=== PATIENT | male | born 1985 | race Two or more races ===

== ENCOUNTER 2021-09-22 11:10 | Emergency (ER) | payer SELFPAY ==
[~2021-09-22] VITALS: Ht 170.2 cm; Wt 76.7 kg
[2021-09-22 11:20] VITALS: BP 118/69
--- NOTE | 2021-09-22 11:25 | NUR ---
LT HAND SWELLING. - TRAUMA PER PT. AMBULATORY, [id number]
[2021-09-22 12:20] LABS: HEMATOCRIT 44 % (39-51); HEMOGLOBIN 14.6 g/dL (13.5-17.5); MEAN CORPUSCULAR HGB CONC 33 g/dl (31.0-36.0); MEAN CORPUSCULAR VOLUME 85 fL (80-96); NEUTROPHILS % (AUTO) 57.3 % (43.0-81.0); PLATELET COUNT (AUTO) 234 K/uL (150-450); RED BLOOD CELL COUNT(AUTO) 5.18 MIL/uL (4.5-6.0); WHITE BLOOD COUNT (AUTO) 6.7 K/uL (4.3-11.0)
[2021-09-22 12:21] LABS: BASOPHILS % (AUTO) 0.3 % (0.0-2.0); EOSINOPHILS % (AUTO) 3.2 % (0.0-6.0); LYMPHOCYTES # (AUTO) 2.1 K/uL (0.8-4.8); LYMPHOCYTES % (AUTO) 31.6 % (20.0-44.0); MONOCYTES # (AUTO) 0.5 K/uL (0.1-1.30); MONOCYTES % (AUTO) 7.6 % (2.0-12.0); NEUTROPHILS # (AUTO) 3.8 K/uL (1.8-8.9)
[2021-09-22 12:33] LABS: CREATININE 1.2 mg/dL (0.6-1.3); POTASSIUM 4.1 mmol/L (3.5-5.1)
--- NOTE | 2021-09-22 14:42 | NUR ---
Patient discharged to home in stable condition. Written and verbal after care instructions given. Patient verbalizes understanding of instruction.
== END 2021-09-22 14:44 | disposition home or self-care (01) ==
LOC: ER 11:16
DX: M65.242 Calcific tendinitis, left hand (principal); Z60.2 Problems related to living alone
CPT/HCPCS: 36415; 73140-TC; 80048-TC; 85025-TC; 85652-TC; 86140-TC

== ENCOUNTER 2025-02-25 11:56 | Emergency (ER) | payer MEDICAID, OTHER ==
[~2025-02-25] VITALS: Ht 177.8 cm; Wt 74.8 kg
[2025-02-25 12:06] VITALS: BP 165/96; TEMP 97.7
[2025-02-25] MEDS ORDERED: LIDO1ADH82 TP (12:20)
[2025-02-25] MEDS ORDERED: IBUP-1957 PO (12:20)
[2025-02-25] MEDS ORDERED: METH4TAB17 PO (12:20)
[2025-02-25] MEDS ORDERED: CYCL5TAB PO (12:20)
[2025-02-25] MEDS ORDERED: CYCLOBENZAPRINE 10 MG TABLET ONE (12:25)
[2025-02-25] MEDS ORDERED: LIDOCAINE 5% (PATCH) 1 EA PATCH TP ONE (12:25)
[2025-02-25] MEDS ORDERED: KETOROLAC TROMETHAMINE INJ 30 MG/ML VIAL ONE (12:25)
[2025-02-25] MEDS: KETOROLAC TROMETHAMINE INJ 30 MG/ML VIAL IM ONE (12:34)
[2025-02-25] MEDS: LIDOCAINE 5% (PATCH) 1 EA PATCH TP STA (12:35)
[2025-02-25] MEDS: CYCLOBENZAPRINE 10 MG TABLET PO ONE (12:38)
[2025-02-25 12:39] VITALS: O2SAT 98
== END 2025-02-25 12:40 | disposition home or self-care (01) ==
LOC: ER 12:03
DX: M54.31 Sciatica, right side (principal); Z79.1 Long term (current) use of non-steroidal anti-inflammatories (NSAID); W01.0XXA Fall on same level from slipping, tripping and stumbling without subsequent striking against object, initial encounter; Y93.01 Activity, walking, marching and hiking; Y92.89 Other specified places as the place of occurrence of the external cause; Y99.9 Unspecified external cause status
CPT/HCPCS: 99284; 96372; J1885; J7512

== ENCOUNTER 2025-04-21 11:28 | Emergency (ER) | payer MEDICAID, OTHER ==
[~2025-04-21] VITALS: Ht 177.8 cm; Wt 74.8 kg
[~2025-04-21 11:28] MED LIST: CYCL5TAB PO; IBUP-1957 PO; LIDO1ADH82 TP; METH4TAB17 PO
[2025-04-21 11:34] VITALS: BP 118/72; TEMP 97.9
[2025-04-21 12:08] VITALS: O2SAT 97
== END 2025-04-21 12:09 | disposition home or self-care (01) ==
LOC: ER 11:32
DX: S61.412D Laceration without foreign body of left hand, subsequent encounter (principal); Z48.02 Encounter for removal of sutures; Z79.1 Long term (current) use of non-steroidal anti-inflammatories (NSAID); X58.XXXD Exposure to other specified factors, subsequent encounter